=== PATIENT | male | born 1955 | race Two or more races ===

== ENCOUNTER 2018-04-25 16:40 | Emergency (ER) | payer SELFPAY ==
--- NOTE | 2018-04-25 16:45 | ER Report ---
History and Physical Time Seen By MD: 16:43 HPI/ROS CHIEF COMPLAINT: Penitentiary clearance evaluation for alcohol HISTORY OF PRESENT ILLNESS: 62-year-old male comes to the emergency department after being found markedly intoxicated in a public been she's currently under arrest by the [place] [employer] here for evaluation and Penitentiary clearance he is alert and oriented to person and place he is somewhat combative and telling me to go "jeannie myself". Patient has no physical complaints has no signs of external trauma he is able to ambulate with assistance his no focal complaints at this time REVIEW OF SYSTEMS: Respiratory: No cough, no dyspnea. Cardiovascular: No chest pain, no palpitations. Gastrointestinal: No vomiting, no abdominal pain. Musculoskeletal: No back pain. Remainder of the 14 system rev: Yes Allergies: Coded Allergies: No Known Drug Allergies (Verified , 04/25/18) Reviewed Nurses Notes: Yes Old Medical Records Reviewed: Yes Hx Smoking: Yes Hx Substance Use Disorder: Yes Hx Alcohol Use: Yes Physical Exam General Appearance: The patient is alert, has no immediate need for airway protection and no current signs of toxicity. Smells of alcohol apparently intoxicated Eyes: Pupils equal and round no injection. Respiratory: Chest is non tender, lungs are clear to auscultation. Cardiac: regular rate and rhythm [ ] Gastrointestinal: Abdomen is soft and non tender, no masses, bowel sounds normal. Musculoskeletal: Neck: Neck is supple and non tender. Extremities have full range of motion and are non tender. Skin: No rashes or lesions. [ ] DIFFERENTIAL DIAGNOSIS: After history and physical exam differential diagnosis was considered for alcohol abuse alcohol intoxication Medical Decision Making ED Course/Re-evaluation ED Course ED clinical course 62-year-old male found intoxicated in a public bench under arrest local police here for assisted clearance alert and oriented 2 able to answer questions appropriately patient able ambulate with some mild assistance patient will be released after thorough examination to police custody Decision to Disposition Date: Apr 25, 2018 Decision to Disposition Time: 16:44 Depart Departure Impression: Primary Impression: Alcohol intoxication Condition: Condition Unchanged Disposition: [facility] TO PRISON/CORRECTIONAL F Patient Instructions: Alcohol Intoxication (DC) MARLINE BRADLEY MD Apr 25, 2018 16:45
== END 2018-04-25 16:55 ==
LOC: ER 16:55
DX: F10.920 Alcohol use, unspecified with intoxication, uncomplicated (principal)
CPT/HCPCS: 99281

== ENCOUNTER → 2018-04-25 | Outpatient (CLI) | payer SELFPAY ==
[~2018-04-25] MED LIST: ASPE325 PO; NO RTN MEDS; TRAZ-133 PO
== END ==
LOC: AMB 16:21
PROVIDERS: ATTEND Nurse Practitioner
DX: F10.220 Alcohol dependence with intoxication, uncomplicated (principal)
CPT/HCPCS: A0425; A0427

== ENCOUNTER 2018-05-07 19:48 | Emergency (ER) | payer SELFPAY ==
[2018-05-07] MEDS ORDERED: NS(*) 0.9% 1000 ML BAG 1,000 ML IV ONE (19:50)
--- NOTE | 2018-05-07 19:50 | ER Report ---
History and Physical Time Seen By MD: 19:49 Hx. of Stated Complaint: SKILLED NURSING CLEARANCE HPI/ROS 62-year-old male brought in by police they were doing a probation check found the patient intoxicated at this point took them in 2 him into custody patient states that he's been drinking Black velvet all days unable to quantify this for me does have slurred speech states that they didn't he did eat food today only medical issues time about his hypertension states he is not sure when he took his last pill Allergies: Coded Allergies: No Known Drug Allergies (Verified , 05/07/18) Home Meds No Active Prescriptions or Reported Meds Hx Smoking: Yes Hx Substance Use Disorder: Yes Hx Alcohol Use: Yes Constitutional Vital Sign - Last 24 Hours 05/07/18 05/07/18 19:49 21:05 Pulse 116 85 Resp 17 17 B/P (MAP) 148/114 159/81 (107) Pulse Ox 93 96 O2 Delivery Room Air Room Air Physical Exam 62 YEAR OLD ALERT SLURRED SPEECH, JAKI TM NON REDDENED, THROAT NON REDDENED MUCOUS MEMBRANES DRY. HRR LUNGS CTA, ABD SOFT BS X 4, WILLARD Medical Decision Making Data Points Result Diagram: 05/07/18195705/07/181957 Laboratory Hematology Test 05/07/18 19:58 05/07/18 20:20 Red Blood Count 4.77 M/uL (4.00-5.60) Mean Corpuscular Volume 93.6 fL (80.0-96.0) Mean Corpuscular Hemoglobin 32.8 pg (26.0-33.0) Mean Corpuscular Hemoglobin Concent 35.0 g/dL (32.0-36.0) Red Cell Distribution Width 13.4 % (11.5-14.5) Mean Platelet Volume 7.6 fL (7.2-11.1) Neutrophils (%) (Auto) 50.1 % (39.4-72.5) Lymphocytes (%) (Auto) 38.0 % (17.6-49.6) Monocytes (%) (Auto) 7.5 % (4.1-12.4) Eosinophils (%) (Auto) 2.9 % (0.4-6.7) Basophils (%) (Auto) 1.5 % (0.3-1.4) Nucleated RBC Relative Count (auto) 0.0 /100WBC Neutrophils # (Auto) 5.1 K/uL (2.0-7.4) Lymphocytes # (Auto) 3.9 K/uL (1.3-3.6) Monocytes # (Auto) 0.8 K/uL (0.3-1.0) Eosinophils # (Auto) 0.3 K/uL (0.0-0.5) Basophils # (Auto) 0.1 K/uL (0.0-0.1) Nucleated RBC Absolute Count (auto) 0.00 K/uL Sodium Level 147 mmol/L (137-145) Potassium Level 3.7 mmol/L (3.5-5.0) Chloride Level 105 mmol/L (98-107) Carbon Dioxide Level 24 mmol/L (22-30) Blood Urea Nitrogen 16 mg/dl (9-21) Creatinine 1.00 mg/dl (0.66-1.25) Glomerular Filtration Rate Calc > 60.0 Random Glucose 131 mg/dl (75-110) Calcium Level 9.3 mg/dl (8.4-10.2) Magnesium Level 2.0 mg/dl (1.7-2.2) Total Bilirubin 0.3 mg/dl (0.2-1.3) Aspartate Amino Transf (AST/SGOT) 34 U/L (0-35) Alanine Aminotransferase (ALT/SGPT) 29 U/L (0-56) Alkaline Phosphatase 66 U/L (0-126) Total Protein 8.4 g/dl (6.3-8.2) Albumin 4.3 g/dl (3.5-5.0) Serum Alcohol 351 mg/dl Urine Color Yellow Urine Clarity Clear Urine pH 5.0 pH (4.8-9.5) Urine Specific [place] 1.011 Urine Protein Negative mg/dL (NEGATIVE) Urine Glucose (UA) Negative mg/dL (NEGATIVE) Urine Ketones Negative mg/dL (NEGATIVE) Urine Blood Negative (NEGATIVE) Urine Nitrite Negative (NEGATIVE) Urine Bilirubin Negative (NEGATIVE) Urine Urobilinogen Negative mg/dL (0.2-1.9) Urine Leukocyte Esterase Negative (NEGATIVE) Urine RBC None /HPF (0-2/HPF) Urine WBC <1 /HPF (0-5/HPF) Urine Squamous Epithelial Cells None /LPF (</=FEW) Urine Bacteria Negative /HPF (NONE-FEW) Urine Mucus None /HPF (NONE-FEW) Urine Opiates Screen Negative Urine Barbiturates Screen Negative Ur Tricyclic Antidepressants Screen Negative Urine Phencyclidine Screen Negative Urine Amphetamines Screen Negative Urine Benzodiazepines Screen Negative Urine Cocaine Screen Negative Urine Cannabinoids Screen Negative Chemistry Test 05/07/18 19:58 05/07/18 20:20 White Blood Count 10.1 k/uL (4.5-11.0) Red Blood Count 4.77 M/uL (4.00-5.60) Hemoglobin 15.6 g/dL (14.0-18.0) Hematocrit 44.7 % (42.0-52.0) Mean Corpuscular Volume 93.6 fL (80.0-96.0) Mean Corpuscular Hemoglobin 32.8 pg (26.0-33.0) Mean Corpuscular Hemoglobin Concent 35.0 g/dL (32.0-36.0) Red Cell Distribution Width 13.4 % (11.5-14.5) Platelet Count 299 K/uL (150-450) Mean Platelet Volume 7.6 fL (7.2-11.1) Neutrophils (%) (Auto) 50.1 % (39.4-72.5) Lymphocytes (%) (Auto) 38.0 % (17.6-49.6) Monocytes (%) (Auto) 7.5 % (4.1-12.4) Eosinophils (%) (Auto) 2.9 % (0.4-6.7) Basophils (%) (Auto) 1.5 % (0.3-1.4) Nucleated RBC Relative Count (auto) 0.0 /100WBC Neutrophils # (Auto) 5.1 K/uL (2.0-7.4) Lymphocytes # (Auto) 3.9 K/uL (1.3-3.6) Monocytes # (Auto) 0.8 K/uL (0.3-1.0) Eosinophils # (Auto) 0.3 K/uL (0.0-0.5) Basophils # (Auto) 0.1 K/uL (0.0-0.1) Nucleated RBC Absolute Count (auto) 0.00 K/uL Glomerular Filtration Rate Calc > 60.0 Calcium Level 9.3 mg/dl (8.4-10.2) Magnesium Level 2.0 mg/dl (1.7-2.2) Total Bilirubin 0.3 mg/dl (0.2-1.3) Aspartate Amino Transf (AST/SGOT) 34 U/L (0-35) Alanine Aminotransferase (ALT/SGPT) 29 U/L (0-56) Alkaline Phosphatase 66 U/L (0-126) Total Protein 8.4 g/dl (6.3-8.2) Albumin 4.3 g/dl (3.5-5.0) Serum Alcohol 351 mg/dl Urine Color Yellow Urine Clarity Clear Urine pH 5.0 pH (4.8-9.5) Urine Specific Freedom 1.011 Urine Protein Negative mg/dL (NEGATIVE) Urine Glucose (UA) Negative mg/dL (NEGATIVE) Urine Ketones Negative mg/dL (NEGATIVE) Urine Blood Negative (NEGATIVE) Urine Nitrite Negative (NEGATIVE) Urine Bilirubin Negative (NEGATIVE) Urine Urobilinogen Negative mg/dL (0.2-1.9) Urine Leukocyte Esterase Negative (NEGATIVE) Urine RBC None /HPF (0-2/HPF) Urine WBC <1 /HPF (0-5/HPF) Urine Squamous Epithelial Cells None /LPF (</=FEW) Urine Bacteria Negative /HPF (NONE-FEW) Urine Mucus None /HPF (NONE-FEW) Urine Opiates Screen Negative Urine Barbiturates Screen Negative Ur Tricyclic Antidepressants Screen Negative Urine Phencyclidine Screen Negative Urine Amphetamines Screen Negative Urine Benzodiazepines Screen Negative Urine Cocaine Screen Negative Urine Cannabinoids Screen Negative Toxicology Test 05/07/18 19:58 05/07/18 20:20 Serum Alcohol 351 mg/dl Urine Opiates Screen Negative Urine Barbiturates Screen Negative Ur Tricyclic Antidepressants Screen Negative Urine Phencyclidine Screen Negative Urine Amphetamines Screen Negative Urine Benzodiazepines Screen Negative Urine Cocaine Screen Negative Urine Cannabinoids Screen Negative Urinalysis Test 05/07/18 20:20 Urine Color Yellow Urine Clarity Clear Urine pH 5.0 pH (4.8-9.5) Urine Specific Freedom 1.011 Urine Protein Negative mg/dL (NEGATIVE) Urine Glucose (UA) Negative mg/dL (NEGATIVE) Urine Ketones Negative mg/dL (NEGATIVE) Urine Blood Negative (NEGATIVE) Urine Nitrite Negative (NEGATIVE) Urine Bilirubin Negative (NEGATIVE) Urine Urobilinogen Negative mg/dL (0.2-1.9) Urine Leukocyte Esterase Negative (NEGATIVE) Urine RBC None /HPF (0-2/HPF) Urine WBC <1 /HPF (0-5/HPF) Urine Squamous Epithelial Cells None /LPF (</=FEW) Urine Bacteria Negative /HPF (NONE-FEW) Urine Mucus None /HPF (NONE-FEW) ED Course/Re-evaluation Clinical Indication for ER IV: Hydration ED Course Patient received 1 L of normal saline in the emergency room with time and fluid patient now has and slurred speech is making sense him states that he drank about half a pint of whiskey today throughout the day is able to walk unassisted we'll release him to police custody Re-evaluation Did well with treatment is able to ambulate in the emergency room under his own power Decision to Disposition Date: May 07, 2018 Decision to Disposition Time: 21:14 Depart Departure Latest Vital Signs Vital Signs Date Time Temp Pulse Resp B/P (MAP) Pulse Ox O2 Delivery O2 Flow Rate FiO2 05/07/18 21:05 85 17 159/81 (107) 96 Room Air Impression: Primary Impression: Alcohol intoxication Condition: Improved Disposition: [facility] TO SKILLED NURSING/CORRECTIONAL F Referrals: [facility] ESAU DOWELLCATRACHITO 1 Week New Scripts No Active Prescriptions or Reported Meds Patient Instructions: Alcohol Intoxication (DC) Additional Instructions: AVAOID ALCOHOL KEYLA VILLALPANDO May 07, 2018 19:50
[2018-05-07 20:10] LABS: PLATELET COUNT, AUTOMATED 299 K/uL (150-450)
[2018-05-07] MEDS ORDERED: MULTIVITAMINS TAB PO ONE (20:50)
[2018-05-07] MEDS ORDERED: THIAMINE HCL 100 MG TAB PO ONE (20:50)
[2018-05-07 21:05] VITALS: BP 159/81
== END 2018-05-07 21:08 ==
LOC: ER 20:10
DX: F10.129 Alcohol abuse with intoxication, unspecified (principal)
CPT/HCPCS: 80305; 80320; 81001; 83735; 84443; 85025; 96360; 99283; J7030; 82040; 82247; 82310; 82374; 82435; 82565; 82947; 84075; 84132; 84155; 84295; 84450; 84460; 84520

== ENCOUNTER 2019-03-05 12:54 | Emergency (ER) | payer SELFPAY ==
--- NOTE | 2019-03-05 13:04 | ER Report ---
History and Physical Time Seen By MD: 13:04 HPI/ROS CHIEF COMPLAINT: Was referred by PCP HISTORY OF PRESENT ILLNESS: 63-year-old male patient presents to emergency room with complaint of being referred by his PCP. Patient states that he had gone to get his blood pressure checked today by his primary care provider. They had started approximately 3 weeks ago. At times it was checked there in the clinic, he had a systolic blood pressure of 80. At that time they felt that he likely needed to have a further workup and referred him to the emergency room. Patient states that he denies having any lightheadedness, dizziness, nausea, vomiting or diarrhea. Patient states he was told that he had a murmur. Patient denies any exercise intolerance, except for that which he considers to be normal due to his smoking. REVIEW OF SYSTEMS: Respiratory: No cough, no dyspnea. Cardiovascular: No chest pain, no palpitations. Gastrointestinal: No vomiting, no abdominal pain. Musculoskeletal: No back pain. Allergies: Coded Allergies: No Known Drug Allergies (Verified , 03/05/19) Home Meds Reported Medications Losartan Potassium (LOSARTAN POTASSIUM) 25 Mg Tablet, 25 MG PO QDAY 03/05/19 Past Medical/Surgical History Patient has a past medical history of seizures, hypertension, arthritis, back pain, fractures, alcohol abuse. Patient has a surgical history of ankle surgery, mesh in his jaw. Reviewed Nurses Notes: Yes Hx Smoking: Yes Hx Substance Use Disorder: Yes Hx Alcohol Use: Yes Constitutional Vital Sign - Last 24 Hours 03/05/19 03/05/19 03/05/19 03/05/19 12:55 12:59 13:00 13:02 Temp 99.2 Pulse 100 Resp 20 B/P (MAP) 134/95 (108) 134/95 100/85 (90) Pulse Ox 87 O2 Delivery Room Air O2 Flow Rate 2.0 03/05/19 03/05/19 03/05/19 03/05/19 13:15 13:24 13:30 13:54 Pulse 88 91 B/P (MAP) 122/86 (98) 110/70 (83) Pulse Ox 95 94 03/05/19 03/05/19 14:00 14:15 B/P (MAP) 122/88 (99) 115/81 (92) Physical Exam General Appearance: The patient is alert, has no immediate need for airway protection and no current signs of toxicity. Respiratory: Chest is non tender, lungs are clear to auscultation. Cardiac: regular rate and rhythm Gastrointestinal: Abdomen is soft and non tender, no masses, bowel sounds normal. Musculoskeletal: Neck: Neck is supple and non tender. Extremities have full range of motion and are non tender. Skin: No rashes or lesions. DIFFERENTIAL DIAGNOSIS: After history and physical exam differential diagnosis was considered for dehydration, reaction to his antihypertensive medications, AR. Medical Decision Making Data Points Result Diagram: 03/05/19 1335 03/05/19 1335 Laboratory Hematology Test 03/05/19 13:35 Red Blood Count 3.79 M/uL (4.00-5.60) Mean Corpuscular Volume 98.2 fL (80.0-96.0) Mean Corpuscular Hemoglobin 33.1 pg (26.0-33.0) Mean Corpuscular Hemoglobin Concent 33.7 g/dL (32.0-36.0) Red Cell Distribution Width 14.6 % (11.5-14.5) Mean Platelet Volume 8.3 fL (7.2-11.1) Neutrophils (%) (Auto) 52.1 % (39.4-72.5) Lymphocytes (%) (Auto) 31.8 % (17.6-49.6) Monocytes (%) (Auto) 9.2 % (4.1-12.4) Eosinophils (%) (Auto) 5.0 % (0.4-6.7) Basophils (%) (Auto) 1.9 % (0.3-1.4) Nucleated RBC Relative Count (auto) 0.2 /100WBC Neutrophils # (Auto) 2.3 K/uL (2.0-7.4) Lymphocytes # (Auto) 1.4 K/uL (1.3-3.6) Monocytes # (Auto) 0.4 K/uL (0.3-1.0) Eosinophils # (Auto) 0.2 K/uL (0.0-0.5) Basophils # (Auto) 0.1 K/uL (0.0-0.1) Nucleated RBC Absolute Count (auto) 0.01 K/uL Sodium Level 144 mmol/L (137-145) Potassium Level 3.4 mmol/L (3.5-5.0) Chloride Level 106 mmol/L (98-107) Carbon Dioxide Level 24 mmol/L (22-30) Blood Urea Nitrogen 16 mg/dl (9-21) Creatinine 1.20 mg/dl (0.66-1.25) Glomerular Filtration Rate Calc > 60.0 Random Glucose 130 mg/dl (75-110) Calcium Level 9.3 mg/dl (8.4-10.2) Total Bilirubin 0.2 mg/dl (0.2-1.3) Aspartate Amino Transf (AST/SGOT) 91 U/L (0-35) Alanine Aminotransferase (ALT/SGPT) 50 U/L (0-56) Alkaline Phosphatase 63 U/L (0-126) Total Protein 7.5 g/dl (6.3-8.2) Albumin 4.3 g/dl (3.5-5.0) Chemistry Test 03/05/19 13:35 White Blood Count 4.4 k/uL (4.5-11.0) Red Blood Count 3.79 M/uL (4.00-5.60) Hemoglobin 12.5 g/dL (14.0-18.0) Hematocrit 37.2 % (42.0-52.0) Mean Corpuscular Volume 98.2 fL (80.0-96.0) Mean Corpuscular Hemoglobin 33.1 pg (26.0-33.0) Mean Corpuscular Hemoglobin Concent 33.7 g/dL (32.0-36.0) Red Cell Distribution Width 14.6 % (11.5-14.5) Platelet Count 214 K/uL (150-450) Mean Platelet Volume 8.3 fL (7.2-11.1) Neutrophils (%) (Auto) 52.1 % (39.4-72.5) Lymphocytes (%) (Auto) 31.8 % (17.6-49.6) Monocytes (%) (Auto) 9.2 % (4.1-12.4) Eosinophils (%) (Auto) 5.0 % (0.4-6.7) Basophils (%) (Auto) 1.9 % (0.3-1.4) Nucleated RBC Relative Count (auto) 0.2 /100WBC Neutrophils # (Auto) 2.3 K/uL (2.0-7.4) Lymphocytes # (Auto) 1.4 K/uL (1.3-3.6) Monocytes # (Auto) 0.4 K/uL (0.3-1.0) Eosinophils # (Auto) 0.2 K/uL (0.0-0.5) Basophils # (Auto) 0.1 K/uL (0.0-0.1) Nucleated RBC Absolute Count (auto) 0.01 K/uL Glomerular Filtration Rate Calc > 60.0 Calcium Level 9.3 mg/dl (8.4-10.2) Total Bilirubin 0.2 mg/dl (0.2-1.3) Aspartate Amino Transf (AST/SGOT) 91 U/L (0-35) Alanine Aminotransferase (ALT/SGPT) 50 U/L (0-56) Alkaline Phosphatase 63 U/L (0-126) Total Protein 7.5 g/dl (6.3-8.2) Albumin 4.3 g/dl (3.5-5.0) EKG/Imaging EKG Interpretation 12 lead EKG: Rhythm: normal sinus rhythm with sinus arrhythmia, ventricular rate 91 bpm [place]: normal QRS: normal ST segments: normal Imaging Exam type: CHEST PA LAT History: low oxygen saturations Comparison: June 16, 2007. Findings: The lungs are free of acute effusions, infiltrates or edema. There is mild flattening the hemidiaphragms which can be seen with COPD. The cardiac silhouette is normal in size. Trachea is in midline. There are several mild compression fractures in the midthoracic spine IMPRESSION: 1. There is mild hyperinflation of the lung mireles although no evidence of acute pulmonary consolidation Report Dictated By: Buffy Fuller MD at 03/05/2019 2:10 PM Report E-Signed By: Buffy Fuller MD at 03/05/2019 2:11 PM ED Course/Re-evaluation ED Course Patient was admitted to an exam room, history and physical were obtained. Differential diagnoses were considered. On examination lungs are clear, heart is regular, abdomen is soft and nontender. Patient is alert and oriented 4, patient denies feeling bad. A CBC, CMP, chest x-ray, EKG were done. Lab results were unremarkable, imaging results were negative every does have some hyperexpansion of his lungs, EKG showed a normal sinus rhythm. I discussed the findings with patient and his daughter. With patient feeling fine we'll go ahead and discharge patient home at this time. He is follow-up with his primary care provider on his next scheduled appointment next Monday. Patient and daughter verbalized understanding and agreement with plan. Decision to Disposition Date: Mar 05, 2019 Decision to Disposition Time: 14:34 Depart Departure Latest Vital Signs Vital Signs Date Time Temp Pulse Resp B/P (MAP) Pulse Ox O2 Delivery O2 Flow Rate FiO2 03/05/19 14:15 115/81 (92) 03/05/19 13:54 91 94 03/05/19 13:00 99.2 20 Room Air 03/05/19 12:55 2.0 Impression: Primary Impression: Hypotension Condition: Improved Disposition: HOME OR SELF-CARE Patient Instructions: Hypotension (ED) Additional Instructions: Limit alcohol intake. Get plenty of rest. Continue with your current medications. Follow up with [facility] as scheduled. Increase fluid intake. Problem Qualifiers Primary Impression: Hypotension Hypotension type: unspecified hypotension type Qualified Codes: I95.9 - Hypotension, unspecified KALIE VAZQUEZ Mar 05, 2019 13:04
[2019-03-05] MEDS ORDERED: LOSA25TA57 PO (13:07)
[2019-03-05 13:50] LABS: PLATELET COUNT, AUTOMATED 214 K/uL (150-450)
[2019-03-05 14:15] VITALS: BP 115/81
--- NOTE | 2019-03-05 14:16 | RADIOLOGY IMAGING REPORT ---
FACILITY: [facility] PATIENT NAME: Ashok Dutta : 1955 MR: [id number] V: [id number] EXAM DATE: ORDERING PHYSICIAN: KALIE VAZQUEZ TECHNOLOGIST: Location: [facility] Patient: Ashok Dutta : 1955 Visit/Account:[id number] Date of Sevice: 03/05/2019 Exam type: CHEST PA LAT History: low oxygen saturations Comparison: June 16, 2007. Findings: The lungs are free of acute effusions, infiltrates or edema. There is mild flattening the hemidiaphr agms which can be seen with COPD. The cardiac silhouette is normal in size. Trachea is in midline. There are several mild compression fractures in the midthoracic spine IMPRESSION: 1. There is mild hyperinflation of the lung mireles although no evidence of acute pulmonary consolida tion Report Dictated By: Buffy Fuller MD at 03/05/2019 2:10 PM Report E-Signed By: Buffy Fuller MD at 03/05/2019 2:11 PM WSN:[email or web address]
--- NOTE | 2019-03-05 14:27 | EKG ---
FACILITY[place] [facility] [place] PATIENT NAME: MASON MORRISON : [id number] MR: [id number] V: [id number] EXAM DATE: ORDERING PHYSICIAN: KALIE VAZQUEZ TECHNOLOGIST: Test Reason : Blood Pressure : / mmHG Vent. Rate : 091 BPM Atrial Rate : 091 BPM P-R Int : 154 ms QRS Dur : 090 ms QT Int : 388 ms P-R-T Axes : 070 093 068 degrees QTc Int : 477 ms Normal sinus rhythm with sinus arrhythmia Normal ECG No previous ECGs available Confirmed by ELVIN ARIAS ([id number]) on 03/05/2019 3:34:13 PM Referred By: Confirmed By:ELVIN ARIAS
== END 2019-03-05 14:46 | disposition home or self-care (01) ==
LOC: ER 13:19
DX: I95.9 Hypotension, unspecified (principal); I49.9 Cardiac arrhythmia, unspecified
CPT/HCPCS: 71046; 82040; 82247; 82310; 82374; 82435; 82565; 82947; 84075; 84132; 84155; 84295; 84450; 84460; 84520; 85025; 93005; 99284